=== PATIENT | female | born 1955 | race Caucasian/White ===

== ENCOUNTER 2021-06-21 11:35 | Emergency (ER) | payer OTHER ==
[2021-06-21 11:46] VITALS: BMI 25.9
[2021-06-21] MEDS ORDERED: SOTROVIMAB 500 MG in SODIUM CHLORIDE 100 ML IVPB ONE (11:55)
[2021-06-21 14:01] VITALS: TEMP 98.2
[2021-06-21 14:19] VITALS: BP 149/85; PULSE 77
== END 2021-06-21 14:19 | disposition home or self-care (01) ==
LOC: JCOVINFU 11:35
DX: U07.1 COVID-19 (principal)
CPT/HCPCS: 99284-25; M0247; Q0247